=== PATIENT | female | born 1985 | race Two or more races ===

== ENCOUNTER 2018-09-04 22:56 | Emergency (ER) | payer SELFPAY ==
[~2018-09-04] VITALS: Ht 162.6 cm; Wt 54.0 kg
[2018-09-04] MEDS ORDERED: HALOPERIDOL LACTATE 5MG/ML VIAL IM STA (23:23)
[2018-09-04] MEDS ORDERED: DIPHENHYDRAMINE 50MG/ML VIAL IM STA (23:23)
[2018-09-05] MEDS ORDERED: LORAZEPAM 2MG/ML CPJ IM ONE
[2018-09-05 01:01] LABS: CHLORIDE 108 mEq/L (98-107)
[2018-09-05 01:03] LABS: BASOPHILS % 0.5 % (0.0-2.0); EOSINOPHILS % 1.1 % (0.0-5.0); HEMATOCRIT. 36.7 % (36.0-48.0); HEMOGLOBIN. 12.3 g/dL (12.0-16.0); LYMPHOCYTES % 23.8 % (20.0-50.0); MEAN CORPUSCULAR HEMOGLOBIN 30.2 pg (28.0-32.0); MEAN CORPUSCULAR VOLUME 90.1 fL (81.0-99.0); MONOCYTES % 5.1 % (2.0-8.0); NEUTROPHILS % 69.5 % (40.0-76.0); PLATELET 340 x1000/uL (130-400); RED BLOOD CELL COUNT 4.08 mill/uL (4.2-5.4); RED CELL DISTRIBUTION WIDTH 16.2 % (11.6-14.6)
[2018-09-05 01:06] LABS: ETHANOL BLOOD < 10 mg/dL
[2018-09-05 01:44] LABS: CLARITY URINE CLEAR (CLEAR); COLOR URINE YELLOW (YELLOW); KETONES URINE TRACE (NEGATIVE); LEUKOCYTE ESTERASE URINE 2+ (NEGATIVE); NITRITE URINE NEGATIVE (NEGATIVE); OCCULT BLOOD URINE NEGATIVE (NEGATIVE); PH URINE 6.5 (4.5-8.0); PROTEIN URINE NEGATIVE (NEGATIVE); UROBILINOGEN URINE 0.2 E.U./dL (0.2-1.0)
[2018-09-05 02:01] LABS: *BARBITURATES SCREEN URINE NEGATIVE (NEGATIVE); *BENZODIAZEPINES SCREEN URINE NEGATIVE (NEGATIVE); *COCAINE SCREEN URINE NEGATIVE (NEGATIVE)
[2018-09-05 02:02] LABS: METHADONE URINE SCREEN NEGATIVE (NEGATIVE)
[2018-09-05 02:03] LABS: OPIATES URINE SCREEN NEGATIVE (NEGATIVE); PHENCYCLIDINE URINE SCREEN NEGATIVE (NEGATIVE)
[2018-09-05 02:07] LABS: *AMPHETAMINES SCREEN URINE PRESUMTIVE POSITIVE (NEGATIVE); CANNABINOID URINE SCREEN PRESUMTIVE POSITIVE (NEGATIVE)
[2018-09-06 06:28] VITALS: BP 95/57
== END 2018-09-06 09:54 | disposition home or self-care (01) ==
LOC: ER 22:56
DX: F15.129 Other stimulant abuse with intoxication, unspecified (principal); F23 Brief psychotic disorder; F16.10 Hallucinogen abuse, uncomplicated
CPT/HCPCS: 36415; 80053; 80305; 80320; 81003; 81025; 85025; 96372; 99283; J1200; J1630; J2060; G0480